=== PATIENT | male | born 1930 | race Caucasian/White ===

== ENCOUNTER 2018-11-24 17:43 | Emergency (ER) | payer OTHER, SELFPAY ==
[~2018-11-24] VITALS: Ht 177.8 cm; Wt 82.5 kg
[~2018-11-24 17:43] MED LIST: ACET325 PO; ACET500 PO; ALLO300 PO; AMLO5 PO; ASPI325 PO; ASPI81EC PO; ATEN50 PO; ATOR10 PO; CLOP75 PO; DIGO.25 PO; DUTA.5 PO; EFFIENT PO; ESCI10 PO; FINA5 PO; GABA400 PO; HYDACE25S PR; HYDCHL25 PO; LISI5 PO; MECL25 PO; METPRE4DP PO; NAPR220 PO; NEBI10 PO; OMEP10ER PO; OMEP20ER PO; ROSU5 PO; SIMV10 PO; TRAM50 PO; UROXATROL; [UNRECOGNIZED DRUG - CODE] PO
[2018-11-24] MEDS ORDERED: CARV3.125 PO (17:56)
[2018-11-24] MEDS ORDERED: FURO40 PO (17:57)
[2018-11-24] MEDS ORDERED: DESOX.05TG TOP (17:57)
[2018-11-24] MEDS ORDERED: POTA10T PO (17:58)
[2018-11-24] MEDS ORDERED: LISI5 PO (17:58)
[2018-11-24] MEDS ORDERED: ALBU90OI INH (17:59)
[2018-11-24 18:07] LABS: BASOPHILS ABSOLUTE AUTO 0.03 K/mm3 (0.00-0.23); BASOPHILS PERCENT AUTO 0 % (0-2); EOSINOPHILS ABSOLUTE AUTO 0.13 K/mm3 (0.00-0.68); EOSINOPHILS PERCENT AUTO 2 % (0-6); Hematocrit 34.9 % (37.0-53.0); Hemoglobin 11.1 g/dL (13.5-17.5); IMMATURE GRAN ABSOLUTE AUTO 0.02 K/mm3 (0.00-0.10); IMMATURE GRAN PERCENT AUTO 0 % (0-1); LYMPHOCYTES ABSOLUTE AUTO 2.17 K/mm3 (0.84-5.20); LYMPHOCYTES PERCENT AUTO 26 % (21-46); MONOCYTES ABSOLUTE AUTO 0.81 K/mm3 (0.16-1.47); MONOCYTES PERCENT AUTO 10 % (4-13); Mean Corpuscular HGB 32.9 pg (26.0-34.0); Mean Corpuscular HGB Conc 31.8 g/dL (31.5-36.5); Mean Corpuscular Volume 104 fL (80-100); Mean Platelet Volume 11.5 fL (9.1-12.4); NEUTROPHILS ABSOLUTE AUTO 5.16 K/mm3 (1.96-9.15); NEUTROPHILS PERCENT AUTO 62 % (41-73); Platelet Count 157 K/mm3 (150-400); RDW Coefficient Variation 14.8 % (11.7-14.2); Red Blood Cell Count 3.37 M/mm3 (4.30-5.90); White Blood Cell Count 8.32 K/mm3 (4.00-11.30)
[2018-11-24 19:36] LABS: Alanine Aminotransfer (ALT/SGP 16 U/L (12-78); Albumin, Blood 3.5 g/dL (3.4-5.0); Albumin/Globulin Ratio 0.9 (0.8-1.8); Alk Phos 119 U/L (50-136); Anion Gap 5 mmol/L (6-16); Aspartate Aminotrans (AST/SGOT 15 U/L (12-37); Bilirubin, Total 0.4 mg/dL (0.1-1.0); Blood Urea Nitrogen 16 mg/dL (8-24); Bun/Creatinine Ratio 14.3 (12.0-20.0); CO2, Blood 25 mmol/L (21-32); Calcium, Blood 8.6 mg/dL (8.5-10.1); Chloride, Blood 111 mmol/L (98-108); Creatinine, Blood 1.12 mg/dL (0.60-1.20); Globulin, Blood 3.7 g/dL (2.2-4.0); Glomerular Filtration Rate >60 (60-); Glucose, Blood 95 mg/dL (70-99); Potassium, Blood 3.8 mmol/L (3.5-5.5); Sodium, Blood 141 mmol/L (136-145); Total Protein, Blood 7.2 g/dL (6.4-8.2); Troponin I 0.045 ng/mL (0.000-0.040)
== END 2018-11-24 20:02 | disposition home or self-care (01) ==
LOC: ER 17:43
PROVIDERS: Emergency Medicine
DX: R07.89 Other chest pain (principal); I10 Essential (primary) hypertension; Z88.0 Allergy status to penicillin; Z88.2 Allergy status to sulfonamides; Z88.8 Allergy status to other drugs, medicaments and biological substances; Z79.899 Other long term (current) drug therapy
CPT/HCPCS: 36415; 71046; 80053; 84484; 85025; 93005; 93010; 99285-25

== ENCOUNTER 2019-04-15 05:02 | Observation (INO) | payer OTHER ==
[~2019-04-15] VITALS: Ht 177.8 cm; Wt 84.3 kg
[~2019-04-15 05:02] MED LIST changes: +ALBU90OI INH; +CARV3.125 PO; +DESOX.05TG TOP; +FURO40 PO; +POTA10T PO
[2019-04-15 05:34] LABS: BASOPHILS ABSOLUTE AUTO 0.03 K/mm3 (0.00-0.23); BASOPHILS PERCENT AUTO 0 % (0-2); EOSINOPHILS ABSOLUTE AUTO 0.12 K/mm3 (0.00-0.68); EOSINOPHILS PERCENT AUTO 2 % (0-6); Hematocrit 38.9 % (37.0-53.0); Hemoglobin 12.3 g/dL (13.5-17.5); IMMATURE GRAN ABSOLUTE AUTO 0.03 K/mm3 (0.00-0.10); IMMATURE GRAN PERCENT AUTO 0 % (0-1); LYMPHOCYTES ABSOLUTE AUTO 1.65 K/mm3 (0.84-5.20); LYMPHOCYTES PERCENT AUTO 25 % (21-46); MONOCYTES ABSOLUTE AUTO 0.45 K/mm3 (0.16-1.47); MONOCYTES PERCENT AUTO 7 % (4-13); Mean Corpuscular HGB 31.9 pg (26.0-34.0); Mean Corpuscular HGB Conc 31.6 g/dL (31.5-36.5); Mean Corpuscular Volume 101 fL (80-100); Mean Platelet Volume 11.5 fL (9.1-12.4); NEUTROPHILS ABSOLUTE AUTO 4.43 K/mm3 (1.96-9.15); NEUTROPHILS PERCENT AUTO 66 % (41-73); Platelet Count 160 K/mm3 (150-400); RDW Coefficient Variation 14.6 % (11.7-14.2); RDW Standard Deviation 54.3 fL (35.1-46.3); Red Blood Cell Count 3.86 M/mm3 (4.30-5.90); White Blood Cell Count 6.71 K/mm3 (4.00-11.30)
[2019-04-15] MEDS ORDERED: FEBU40TA PO (05:39)
[2019-04-15 05:53] LABS: Alanine Aminotransfer (ALT/SGP 17 U/L (12-78); Albumin, Blood 3.7 g/dL (3.4-5.0); Albumin/Globulin Ratio 0.9 (0.8-1.8); Alk Phos 118 U/L (50-136); Anion Gap 6 mmol/L (6-16); Aspartate Aminotrans (AST/SGOT 9 U/L (12-37); Bilirubin, Total 0.8 mg/dL (0.1-1.0); Blood Urea Nitrogen 12 mg/dL (8-24); Bun/Creatinine Ratio 12.3 (12.0-20.0); CO2, Blood 26 mmol/L (21-32); Calcium, Blood 8.8 mg/dL (8.5-10.1); Chloride, Blood 111 mmol/L (98-108); Creatinine, Blood 0.98 mg/dL (0.60-1.20); Glomerular Filtration Rate >60 (60-); Glucose, Blood 107 mg/dL (70-99); Magnesium, Blood 2.2 mg/dL (1.6-2.4); Sodium, Blood 143 mmol/L (136-145); Total Protein, Blood 7.7 g/dL (6.4-8.2)
[2019-04-15 05:55] LABS: Influenza A Negative (NEGATIVE); Influenza B Negative (NEGATIVE)
[2019-04-15 07:02] LABS: Source, Urine Voided
[2019-04-15 07:04] LABS: Bilirubin, Urine Neg (Neg); Blood, Urine Neg (Neg); Glucose Qualitative, Urine Neg (Neg); Ketones, Urine Neg (Neg); Leukocyte Esterase, Urine Neg (Neg); Nitrite, Urine Neg (Neg); Protein, Urine Neg (Neg); Urobilinogen, Urine NORM (Normal)
[2019-04-15 07:10] LABS: Appearance, Urine Clear (Clear); Color, Urine Yellow (P-Yellow)
--- NOTE | 2019-04-15 10:31 | NUR ---
Patient from ER to room 306, transported via stretcher and pivot transfer to bed. Received report from DOMITILA Kelly. Patient is A/Ox4, settled to room and instructed career information specialist light system. Bed alarm in place for the mean time until further mobility assessed. Bed in lowest position, call light near, son at bedside.
[2019-04-15] MEDS ORDERED: AMLODIPINE BES2.5 MG PO (11:00)
[2019-04-15] MEDS ORDERED: ZOCOR20 MG PO (11:03)
--- NOTE | 2019-04-15 12:12 | NUR ---
Echocardiogram completed.
--- NOTE | 2019-04-15 18:23 | NUR ---
Shift Summary A/Ox3, patient is mildly forgetful and asks some of the same questions repeatedly such as how to use the call light. Patient is SBA with cane as baseline, pt wears slippers to bed for warmth, TEDS on at this time. Pt has been complaining of just not feeling good, a 6/10 chronic headache uncontrolled with Tylenol, and an intermittent chronic R groin pain. Denies nausea, SOB, chest pain. No signs of dyspnea. Consult called in to Dr. Lopez. Will continue to monitor until report given.
[2019-04-16 00:36] LABS: BASOPHILS ABSOLUTE AUTO 0.03 K/mm3 (0.00-0.23); BASOPHILS PERCENT AUTO 1 % (0-2); EOSINOPHILS ABSOLUTE AUTO 0.18 K/mm3 (0.00-0.68); EOSINOPHILS PERCENT AUTO 3 % (0-6); Hematocrit 34.9 % (37.0-53.0); Hemoglobin 10.9 g/dL (13.5-17.5); IMMATURE GRAN ABSOLUTE AUTO 0.02 K/mm3 (0.00-0.10); IMMATURE GRAN PERCENT AUTO 0 % (0-1); LYMPHOCYTES ABSOLUTE AUTO 2.04 K/mm3 (0.84-5.20); LYMPHOCYTES PERCENT AUTO 31 % (21-46); MONOCYTES ABSOLUTE AUTO 0.71 K/mm3 (0.16-1.47); MONOCYTES PERCENT AUTO 11 % (4-13); Mean Corpuscular HGB Conc 31.2 g/dL (31.5-36.5); Mean Corpuscular Volume 102 fL (80-100); Mean Platelet Volume 11.5 fL (9.1-12.4); NEUTROPHILS ABSOLUTE AUTO 3.61 K/mm3 (1.96-9.15); NEUTROPHILS PERCENT AUTO 55 % (41-73); Platelet Count 144 K/mm3 (150-400); RDW Coefficient Variation 14.6 % (11.7-14.2); Red Blood Cell Count 3.41 M/mm3 (4.30-5.90); White Blood Cell Count 6.59 K/mm3 (4.00-11.30)
[2019-04-16 00:51] LABS: Anion Gap 4 mmol/L (6-16); Blood Urea Nitrogen 12 mg/dL (8-24); Bun/Creatinine Ratio 11.9 (12.0-20.0); CO2, Blood 27 mmol/L (21-32); Calcium, Blood 8.2 mg/dL (8.5-10.1); Chloride, Blood 111 mmol/L (98-108); Creatinine, Blood 1.01 mg/dL (0.60-1.20); Glomerular Filtration Rate >60 (60-); Glucose, Blood 88 mg/dL (70-99); Potassium, Blood 3.9 mmol/L (3.5-5.5); Sodium, Blood 142 mmol/L (136-145)
--- NOTE | 2019-04-16 07:11 | NUR ---
SHIFT SUMMARY PT IS AN 88 Y/O MALE, ADMITTED FOR NEW [facility] AF[facility]. HE IS A&O X 3, THOUGH FORGETFUL AT TIMES. PT IS UP WITH A SBA, THOUGH FORGETS TO CALL AND SO IS ON A BED ALARM. HE WAS MEDICATED TWICE DURING THE NIGHT FOR A HEADACHE WITH PRN HYDROCODONE, WHICH HE REPORTED WORKED "VERY WELL" FOR HIS PAIN. NO COMPLAINTS OF NAUSEA OR SOB. VITAL SIGNS STABLE. NO ACUTE CHANGES IN PT CONDITION NOTED DURING THE NIGHT. REPORT GIVEN TO ONCOMING RN.
--- NOTE | 2019-04-16 19:24 | NUR ---
SHIFT SUMMARY: NO ACUTE CHANGES TO REPORT THIS SHIFT. PT A&O; CALM AND COOPERATIVE WITH CARE. MEDICATED FOR HEADACHE PAIN PER EMAR. PT UP WITH SBA TO BATHROOM. DIURESIS CONTINUING; CARDIOLOGY FOLLOWING. REPORT GIVEN TO ONCOMING RN.
--- NOTE | 2019-04-17 03:26 | NUR ---
SUMMARY: A/OX3 BUT FORGETFULL AT TIMES AND SETS OFF BED ALARM TO USE TOILET. SBA REQUIRED OOB. HE REMAINS NSR W/PAC'S AT 60'S BPM PER TELEMETRY, NO EPISODES OF V.TACH THIS SHIFT. HE'S DENIED PAIN, CP, SOB AND DYSPNEA. CARDIOLOGY CONSULTING. PT HASN'T HAD A BM THIS SHIFT SO GUAIAC STILL UNCOLLECTED. NO ACUTE CHANGES, VSS AND AFEBRILE. WCM AND REPORT TO DAY RN.
[2019-04-17 04:57] LABS: BASOPHILS ABSOLUTE AUTO 0.02 K/mm3 (0.00-0.23); BASOPHILS PERCENT AUTO 0 % (0-2); EOSINOPHILS ABSOLUTE AUTO 0.12 K/mm3 (0.00-0.68); EOSINOPHILS PERCENT AUTO 2 % (0-6); Hematocrit 36.9 % (37.0-53.0); Hemoglobin 11.4 g/dL (13.5-17.5); IMMATURE GRAN ABSOLUTE AUTO 0.03 K/mm3 (0.00-0.10); IMMATURE GRAN PERCENT AUTO 0 % (0-1); LYMPHOCYTES ABSOLUTE AUTO 1.71 K/mm3 (0.84-5.20); LYMPHOCYTES PERCENT AUTO 23 % (21-46); MONOCYTES ABSOLUTE AUTO 0.61 K/mm3 (0.16-1.47); MONOCYTES PERCENT AUTO 8 % (4-13); Mean Corpuscular HGB 31.7 pg (26.0-34.0); Mean Corpuscular HGB Conc 30.9 g/dL (31.5-36.5); Mean Corpuscular Volume 103 fL (80-100); Mean Platelet Volume 11.9 fL (9.1-12.4); NEUTROPHILS ABSOLUTE AUTO 4.82 K/mm3 (1.96-9.15); NEUTROPHILS PERCENT AUTO 66 % (41-73); Platelet Count 147 K/mm3 (150-400); RDW Coefficient Variation 14.5 % (11.7-14.2); RDW Standard Deviation 54.6 fL (35.1-46.3); White Blood Cell Count 7.31 K/mm3 (4.00-11.30)
[2019-04-17 05:21] LABS: Anion Gap 4 mmol/L (6-16); Blood Urea Nitrogen 12 mg/dL (8-24); Bun/Creatinine Ratio 11.9 (12.0-20.0); CO2, Blood 27 mmol/L (21-32); Calcium, Blood 8.8 mg/dL (8.5-10.1); Chloride, Blood 110 mmol/L (98-108); Creatinine, Blood 1.01 mg/dL (0.60-1.20); Glomerular Filtration Rate >60 (60-); Glucose, Blood 97 mg/dL (70-99); Potassium, Blood 4.2 mmol/L (3.5-5.5); Sodium, Blood 141 mmol/L (136-145)
[2019-04-17] MEDS ORDERED: ACET325 PO (13:14)
--- NOTE | 2019-04-17 14:32 | NUR ---
REVIEW W/DAUGHTER. AWARE ONLY CHANGE IN MEDS IS INCREASE IN LASIX FROM 40MG TO 60 MG. AWARE WANTS PATIENT TO USE TYLENOL AND/OR GABAPENTIN FOR HEAD PAIN TILL F/U W/PCP. AWARE [facility] WILL CALL ABOUT F/U APPT. REVIEW A-FIB AND PALPITAIONS. ANSWER ALL QUESTIONS. AWARE IF ANY PROBLEMS W/HEART OR LUNGS TO CALL AMBULANCE AND GO TO E.R. IN W/C W/ESCORT TO POV.
== END 2019-04-17 14:26 | disposition home or self-care (01) ==
LOC: ER 05:02 → MEDS 05:03 → ENPENDDIS 04-17 11:00 → MEDS 04-17 14:26
PROVIDERS: Emergency Medicine; Family Medicine; ADMIT Student in an Organized Health Care Education/Training Program
DX: I25.5 Ischemic cardiomyopathy (principal); I11.0 Hypertensive heart disease with heart failure; I50.43 Acute on chronic combined systolic (congestive) and diastolic (congestive) heart failure; I47.2 Ventricular tachycardia; D53.9 Nutritional anemia, unspecified; I25.10 Atherosclerotic heart disease of native coronary artery without angina pectoris; Z88.0 Allergy status to penicillin; Z79.899 Other long term (current) drug therapy; Z88.2 Allergy status to sulfonamides; Z88.8 Allergy status to other drugs, medicaments and biological substances; Z66 Do not resuscitate; Z79.82 Long term (current) use of aspirin; Z95.5 Presence of coronary angioplasty implant and graft; Z86.73 Personal history of transient ischemic attack (TIA), and cerebral infarction without residual deficits
CPT/HCPCS: 36415; 71045; 80048; 80053; 81003; 83735; 83880; 84443; 84484; 85025; 87804; 93005; 93010; 93306; 96361; 96372; 96374-59; 99285-25; A9270; A9270-GY; G0378; J1650; J2405; J7030

== ENCOUNTER 2019-06-23 10:30 | Emergency (ER) | payer OTHER ==
[~2019-06-23] VITALS: Ht 180.3 cm; Wt 80.7 kg
[~2019-06-23 10:30] MED LIST changes: +AMLODIPINE BES2.5 MG PO; +FEBU40TA PO; +ZOCOR20 MG PO
[2019-06-23 11:53] LABS: Source, Urine Clean Catch
[2019-06-23 11:55] LABS: BASOPHILS ABSOLUTE AUTO 0.03 K/mm3 (0.00-0.23); BASOPHILS PERCENT AUTO 0 % (0-2); EOSINOPHILS ABSOLUTE AUTO 0.06 K/mm3 (0.00-0.68); EOSINOPHILS PERCENT AUTO 1 % (0-6); Hematocrit 37.2 % (37.0-53.0); Hemoglobin 11.7 g/dL (13.5-17.5); IMMATURE GRAN ABSOLUTE AUTO 0.02 K/mm3 (0.00-0.10); IMMATURE GRAN PERCENT AUTO 0 % (0-1); LYMPHOCYTES ABSOLUTE AUTO 1.84 K/mm3 (0.84-5.20); LYMPHOCYTES PERCENT AUTO 25 % (21-46); MONOCYTES ABSOLUTE AUTO 0.61 K/mm3 (0.16-1.47); MONOCYTES PERCENT AUTO 8 % (4-13); Mean Corpuscular HGB 31.6 pg (26.0-34.0); Mean Corpuscular HGB Conc 31.5 g/dL (31.5-36.5); Mean Corpuscular Volume 101 fL (80-100); Mean Platelet Volume 11.7 fL (9.1-12.4); NEUTROPHILS ABSOLUTE AUTO 4.94 K/mm3 (1.96-9.15); NEUTROPHILS PERCENT AUTO 66 % (41-73); Platelet Count 180 K/mm3 (150-400); RDW Coefficient Variation 15.1 % (11.7-14.2); RDW Standard Deviation 55.7 fL (35.1-46.3)
[2019-06-23 12:03] LABS: Bilirubin, Urine Neg (Neg); Blood, Urine Neg (Neg); Glucose Qualitative, Urine Neg (Neg); Ketones, Urine Neg (Neg); Leukocyte Esterase, Urine Neg (Neg); Nitrite, Urine Neg (Neg); Protein, Urine Neg (Neg); Urobilinogen, Urine NORM (Normal)
[2019-06-23 12:09] LABS: Appearance, Urine Clear (Clear); Color, Urine Pale Yellow (P-Yellow)
[2019-06-23 12:16] LABS: Alanine Aminotransfer (ALT/SGP 15 U/L (12-78); Albumin, Blood 3.5 g/dL (3.4-5.0); Albumin/Globulin Ratio 0.9 (0.8-1.8); Alk Phos 113 U/L (50-136); Anion Gap 8 mmol/L (6-16); Aspartate Aminotrans (AST/SGOT 14 U/L (12-37); Bilirubin, Total 0.7 mg/dL (0.1-1.0); Blood Urea Nitrogen 12 mg/dL (8-24); Bun/Creatinine Ratio 11.4 (12.0-20.0); CO2, Blood 24 mmol/L (21-32); Calcium, Blood 8.7 mg/dL (8.5-10.1); Chloride, Blood 109 mmol/L (98-108); Creatinine, Blood 1.05 mg/dL (0.60-1.20); Glomerular Filtration Rate >60 (60-); Glucose, Blood 101 mg/dL (70-99); Sodium, Blood 141 mmol/L (136-145); Total Protein, Blood 7.5 g/dL (6.4-8.2); Troponin I 0.055 ng/mL (0.000-0.040)
== END 2019-06-23 13:25 | disposition home or self-care (01) ==
LOC: ER 10:30
PROVIDERS: Emergency Medicine; Nurse Practitioner
DX: I42.9 Cardiomyopathy, unspecified (principal); R79.89 Other specified abnormal findings of blood chemistry; I11.0 Hypertensive heart disease with heart failure; I50.9 Heart failure, unspecified; Z88.8 Allergy status to other drugs, medicaments and biological substances; Z88.0 Allergy status to penicillin; Z88.2 Allergy status to sulfonamides; Z79.899 Other long term (current) drug therapy
CPT/HCPCS: 36415; 71046; 80053; 81003; 83880; 84484; 85025; 93005; 93010; 99285-25